=== PATIENT | male | born 1995 | race Caucasian/White ===

== ENCOUNTER → 2021-04-15 | Outpatient (CLI) | payer OTHER, MEDICAID ==
[~2021-04-15] MED LIST: ABILIFY1 MG/1 ML; ABILIFY10 MG PO; AUGMENTIN 875875 MG PO; CLOZAPINE ODT12.5 MG PO; CORTISPORIN OTI10 M2 OTIC; IBUPROFEN 800800 M1 PO; KEFLEX250 MG PO; LEVOTHYROXIN0.025 MG PO; LITHATE5 MG PO; NAMENDA 10 MG T10 MG
[2021-04-15 14:32] LABS: ALBUMIN 4.2 g/dL (3.4-5.0); CREATININE 1.4 mg/dL (0.6-1.3); TOTAL BILIRUBIN 0.6 mg/dL (<0.1-1.0); TOTAL PROTEIN 7.5 g/dL (6.4-8.2)
[2021-04-15 22:06] LABS: COMPLEMENT-C4 13 mg/dL (12-38)
[2021-04-16 07:06] LABS: CREATININE CLEARANCE 77 mL/min (97-137); URINE CREATININE 23.5 mg/dL (Not Estab.); URINE CREATININE (GM/24H) 1457 mg/24 hr (1000-2000)
[2021-04-16 07:06] LABS: HEPATITIS B SURFACE AG Negative (Negative)
[2021-04-17 10:08] LABS: GLOMERULR BASEM MEMBRN AB 7 units (0-20)
[2021-04-17 13:11] LABS: M-SPIKE Not Observed g/dL (Not Observed)
[2021-04-17 21:06] LABS: ANA INTERPRETATION Negative (())
== END ==
LOC: M.LAB 13:39
PROVIDERS: ATTEND Internal Medicine Nephrology
DX: N18.31 Chronic kidney disease, stage 3a (principal)